=== PATIENT | male | born 1970 | race Two or more races ===

== ENCOUNTER 2022-10-30 09:02 | Emergency (ER) | payer OTHER ==
[~2022-10-30] VITALS: Ht 162.6 cm; Wt 73.5 kg
[~2022-10-30 09:02] MED LIST: ATORVASTATIN CA20 MG PO; KETO10TA2 PO; METFORMIN HCL500 M4 PO; NORFLEX100MG PO
== END 2022-10-30 10:42 | disposition home or self-care (01) ==
LOC: ER 09:02
DX: J40 Bronchitis, not specified as acute or chronic (principal); M62.838 Other muscle spasm; R53.81 Other malaise; I10 Essential (primary) hypertension; E11.9 Type 2 diabetes mellitus without complications; Z79.84 Long term (current) use of oral hypoglycemic drugs; Z91.013 Allergy to seafood

== ENCOUNTER 2022-11-26 16:04 | Emergency (ER) | payer OTHER ==
[~2022-11-26] VITALS: Ht 162.6 cm; Wt 74.4 kg
[~2022-11-26 16:04] MED LIST changes: +DICLOFENAC POTA50 MG PO
== END 2022-11-26 19:36 | disposition home or self-care (01) ==
LOC: ER 16:04
DX: U07.1 COVID-19 (principal); E11.9 Type 2 diabetes mellitus without complications; Z79.84 Long term (current) use of oral hypoglycemic drugs; Z91.013 Allergy to seafood